=== PATIENT | male | born 1955 | race Caucasian/White ===

== ENCOUNTER 2018-08-05 22:28 | Observation (INO) | payer OTHER ==
[2018-08-05] MEDS ORDERED: IPRATROPIUM-ALBUTEROL 3 ML NEB INHALATION STA (23:07)
[2018-08-05] MEDS ORDERED: LEVOFLOXACIN 750MG-D5W PMX 750 MG in DEXTROSE/WATER 1 150ML.BAG IVPB STA (23:07)
[2018-08-05] MEDS ORDERED: SODIUM CHLORIDE 0.9% 500 ML 500 ML IV STA (23:07)
[2018-08-05] MEDS ORDERED: SODIUM CHLORIDE 0.9% 1,000 ML IV STA (23:07)
[2018-08-05] MEDS ORDERED: ACETAMINOPHEN TAB 500 MG TAB PO STA (23:08)
[2018-08-05] MEDS ORDERED: IBUPROFEN 800 MG TAB PO STA (23:08)
--- NOTE | 2018-08-05 23:14 | XR ---
EXAMINATION TYPE: XR chest 2V DATE OF EXAM: 08/05/2018 COMPARISON: NONE HISTORY: Chest pain TECHNIQUE: Frontal and lateral views of the chest are obtained. FINDINGS: Heart and mediastinum are normal. Lungs are clear. Diaphragm is normal. Bony thorax is int act. IMPRESSION: Normal chest. No change.
[2018-08-05 23:48] LABS: Basophils % (A) 1 %; Eosinophils # (A) 0.1 k/uL (0-0.7); Eosinophils % (A) 2 %; HCT 40.1 % (39.0-53.0); HGB 13.7 gm/dL (13.0-17.5); Lymphocytes # (A) 1.2 k/uL (1.0-4.8); Lymphocytes % (A) 17 %; MCHC 34.2 g/dL (31.0-37.0); MCV 84.8 fL (80.0-100.0); Mean Platelet Volume 7.4; Monocytes # (A) 0.4 k/uL (0-1.0); Monocytes % (A) 6 %; Neutrophils # (A) 5.2 k/uL (1.3-7.7); Neutrophils % (A) 74 %; Platelet Count 148 k/uL (150-450); RBC 4.73 m/uL (4.30-5.90); RDW 13.5 % (11.5-15.5); WBC 7.1 k/uL (3.8-10.6)
[2018-08-05 23:57] LABS: Partial Thromboplastin Time 26.8 sec (22.0-30.0); Prothrombin Time 9.5 sec (9.0-12.0)
[2018-08-06 00:01] LABS: ALT 18 U/L (21-72); AST 12 U/L (17-59); Albumin 3.8 g/dL (3.5-5.0); Alkaline Phosphatase 97 U/L (38-126); Anion Gap 7 mmol/L; Blood Urea Nitrogen 20 mg/dL (9-20); Calcium 9.1 mg/dL (8.4-10.2); Carbon Dioxide 24 mmol/L (22-30); Chloride 108 mmol/L (98-107); Glucose 86 mg/dL (74-99); Magnesium 2.3 mg/dL (1.6-2.3); Sodium 139 mmol/L (137-145); Total Bilirubin 0.3 mg/dL (0.2-1.3); Total Protein 6.1 g/dL (6.3-8.2)
[2018-08-06 00:09] LABS: Creatine Kinase 36 U/L (55-170)
[2018-08-06 00:22] LABS: Creatine Kinase MB 0.7 ng/mL (0.0-2.4); Troponin I <0.012 ng/mL (0.000-0.034)
[2018-08-06] MEDS ORDERED: NITROGLYCERIN SL TABS 0.4 MG TAB SUBLINGUAL PRN (00:27)
[2018-08-06] MEDS ORDERED: methylPREDNISolone SOD SUCCI 125 MG/2 ML VIAL IV STA (00:27)
[2018-08-06] MEDS ORDERED: ASPIRIN 81 MG PO STA (00:27)
--- NOTE | 2018-08-06 00:27 | ED ---
SOB HPI - General Chief Complaint: Upper Respiratory Infection Stated Complaint: poss pneumonia Time Seen by Provider: 08/05/18 22:54 Source: patient, RN notes reviewed, old records reviewed Mode of arrival: ambulatory Limitations: no limitations - History of Present Illness Initial Comments: This is a 61-year-old male to the ER for evaluation presented for evaluation today regarding shortness of breath is breath and chest pain. Patient does admit history of smoking. No other significant medical history woke up with Some substernal chest pain and pressure he states recently her upper respiratory infection including Raynaud's cough and congestion that she feels like similar distress episodic fevers or chills. No recent travel history no sick contacts. No recent hospitalizations. MD Complaint: shortness of breath, cough, chest pain, pain with inspiration -: days(s) (4) Severity scale (1-10): 3 Quality: dull, aching Consistency: constant Improves With: nothing Worsens With: exertion Known History Of: COPD Associated Symptoms: chest pain, pain with inspiration, fever, cough, sputum production Treatments Prior to Arrival: none - Related Data Home Medications Medication Instructions Recorded Confirmed Cyclobenzaprine [Flexeril] 10 mg PO DAILY PRN 08/05/18 08/05/18 Hydrocodone/Acetaminophen [[place] 1 tab PO Q4H PRN 08/05/18 08/05/18 10-325] Zolpidem Tartrate [Ambien] 10 mg PO HS PRN 08/05/18 08/05/18 traZODone HCL 200 mg PO HS 08/05/18 08/05/18 Allergies Allergy/AdvReac Type Severity Reaction Status Date / Time No Known Allergies Allergy Verified 08/05/18 23:01 Review of Systems ROS Statement: Those systems with pertinent positive or pertinent negative responses have been documented in the HPI. ROS Other: All systems not noted in ROS Statement are negative. Past Medical History Additional Past Medical History / Comment(s): kidney stones, back pain History of Any Multi-Drug Resistant Organisms: None Reported Past Surgical History: Tonsillectomy Past Psychological History: Depression Smoking Status: Current every day smoker Past Alcohol Use History: Rare Past Drug Use History: None Reported General Exam Limitations: no limitations General appearance: alert, in no apparent distress Head exam: Present: atraumatic, normocephalic, normal inspection Eye exam: Present: normal appearance, PERRL, EOMI. Absent: scleral icterus, conjunctival injection, periorbital swelling ENT exam: Present: normal exam, mucous membranes moist Neck exam: Present: normal inspection. Absent: tenderness, meningismus, lymphadenopathy Respiratory exam: Present: wheezes, decreased breath sounds, prolonged expiratory. Absent: respiratory distress, rales, rhonchi, stridor Cardiovascular Exam: Present: regular rate, normal rhythm, normal heart sounds. Absent: systolic murmur, diastolic murmur, rubs, gallop, clicks GI/Abdominal exam: Present: soft, normal bowel sounds. Absent: distended, tenderness, guarding, rebound, rigid Extremities exam: Present: normal inspection, full ROM, normal capillary refill. Absent: tenderness, pedal edema, joint swelling, calf tenderness Back exam: Present: normal inspection Neurological exam: Present: alert, oriented X3, CN II-XII intact Psychiatric exam: Present: normal affect, normal mood Skin exam: Present: warm, dry, intact, normal color. Absent: rash Course Vital Signs 08/05/18 08/05/18 08/05/18 22:30 23:40 23:59 Temperature 98.1 F Pulse Rate 109 H 81 88 Respiratory 20 16 Rate Blood Pressure 137/86 136/72 O2 Sat by Pulse 91 L 95 Oximetry - Reevaluation(s) Reevaluation #1: 08/06/18 00:25 Medical records thoroughly reviewed Reevaluation #2: 08/06/18 00:26 Patient is not feeling much better with breathing treatments, still with chest pain Medical Decision Making - Medical Decision Making 63 male the ER with history of smoking, chest pain, cough congestion shortness of breath increased sputum production, COPD exacerbation, patient will also be ruled out for cardiac evaluation. - Lab Data Result diagrams: 08/05/18 23:34 08/05/18 23:34 Lab Results 08/05/18 08/05/18 08/05/18 Range/Units 23:34 23:34 23:34 WBC 7.1 (3.8-10.6) k/uL RBC 4.73 (4.30-5.90) m/uL Hgb 13.7 (13.0-17.5) gm/dL Hct 40.1 (39.0-53.0) % MCV 84.8 (80.0-100.0) fL MCH 29.0 (25.0-35.0) pg MCHC 34.2 (31.0-37.0) g/dL RDW 13.5 (11.5-15.5) % Plt Count 148 L (150-450) k/uL Neutrophils % 74 % Lymphocytes % 17 % Monocytes % 6 % Eosinophils % 2 % Basophils % 1 % Neutrophils # 5.2 (1.3-7.7) k/uL Lymphocytes # 1.2 (1.0-4.8) k/uL Monocytes # 0.4 (0-1.0) k/uL Eosinophils # 0.1 (0-0.7) k/uL Basophils # 0.0 (0-0.2) k/uL PT (9.0-12.0) sec INR (<1.2) APTT (22.0-30.0) sec Sodium 139 (137-145) mmol/L Potassium 4.0 (3.5-5.1) mmol/L Chloride 108 H (98-107) mmol/L Carbon Dioxide 24 (22-30) mmol/L Anion Gap 7 mmol/L BUN 20 (9-20) mg/dL Creatinine 0.71 (0.66-1.25) mg/dL Est GFR (CKD-EPI)AfAm >90 (>60 ml/min/1.73 sqM) Est GFR (CKD-EPI)NonAf >90 (>60 ml/min/1.73 sqM) Glucose 86 (74-99) mg/dL Calcium 9.1 (8.4-10.2) mg/dL Magnesium 2.3 (1.6-2.3) mg/dL Total Bilirubin 0.3 (0.2-1.3) mg/dL AST 12 L (17-59) U/L ALT 18 L (21-72) U/L Alkaline Phosphatase 97 (38-126) U/L Total Creatine Kinase 36 L (55-170) U/L CK-MB (CK-2) 0.7 (0.0-2.4) ng/mL CK-MB (CK-2) Rel Index 1.9 Troponin I <0.012 (0.000-0.034) ng/mL NT-Pro-B Natriuret Pep pg/mL Total Protein 6.1 L (6.3-8.2) g/dL Albumin 3.8 (3.5-5.0) g/dL 08/05/18 08/05/18 Range/Units 23:34 23:34 WBC (3.8-10.6) k/uL RBC (4.30-5.90) m/uL Hgb (13.0-17.5) gm/dL Hct (39.0-53.0) % MCV (80.0-100.0) fL MCH (25.0-35.0) pg MCHC (31.0-37.0) g/dL RDW (11.5-15.5) % Plt Count (150-450) k/uL Neutrophils % % Lymphocytes % % Monocytes % % Eosinophils % % Basophils % % Neutrophils # (1.3-7.7) k/uL Lymphocytes # (1.0-4.8) k/uL Monocytes # (0-1.0) k/uL Eosinophils # (0-0.7) k/uL Basophils # (0-0.2) k/uL PT 9.5 (9.0-12.0) sec INR 1.0 (<1.2) APTT 26.8 (22.0-30.0) sec Sodium (137-145) mmol/L Potassium (3.5-5.1) mmol/L Chloride (98-107) mmol/L Carbon Dioxide (22-30) mmol/L Anion Gap mmol/L BUN (9-20) mg/dL Creatinine (0.66-1.25) mg/dL Est GFR (CKD-EPI)AfAm (>60 ml/min/1.73 sqM) Est GFR (CKD-EPI)NonAf (>60 ml/min/1.73 sqM) Glucose (74-99) mg/dL Calcium (8.4-10.2) mg/dL Magnesium (1.6-2.3) mg/dL Total Bilirubin (0.2-1.3) mg/dL AST (17-59) U/L ALT (21-72) U/L Alkaline Phosphatase (38-126) U/L Total Creatine Kinase (55-170) U/L CK-MB (CK-2) (0.0-2.4) ng/mL CK-MB (CK-2) Rel Index Troponin I (0.000-0.034) ng/mL NT-Pro-B Natriuret Pep 96 pg/mL Total Protein (6.3-8.2) g/dL Albumin (3.5-5.0) g/dL - EKG Data -: EKG Interpreted by Me (EKG shows normal sinus rhythm rate of 81, [place] 140, QRS 76, QTc 460) EKG shows normal: sinus rhythm Rate: normal Disposition Clinical Impression: Chest pain, Acute exacerbation of chronic obstructive pulmonary disease (COPD) Disposition: ADMITTED IP TO THIS HOSP Condition: Fair Is patient prescribed a controlled substance at d/c from ED?: No Referrals: [facility],Clinic [Primary Care Provider] - 1-2 days
[2018-08-06] MEDS ORDERED: SODIUM CHLORIDE 0.9% 1,000 ML IV SCH (00:30)
[2018-08-06 01:48] VITALS: BMI 24.3
[2018-08-06 06:03] LABS: Creatine Kinase 31 U/L (55-170)
[2018-08-06] MEDS: methylPREDNISolone SOD SUCCI 125 MG/2 ML VIAL IV SCH ×2 (06:06→13:06)
[2018-08-06 06:14] LABS: Creatine Kinase MB 0.6 ng/mL (0.0-2.4); Troponin I <0.012 ng/mL (0.000-0.034)
[2018-08-06 06:54] LABS: Glucose,Whole Blood 216 mg/dL (75-99)
[2018-08-06] MEDS: IPRATROPIUM-ALBUTEROL 3 ML NEB INHALATION SCH ×2 (07:39→11:26)
[2018-08-06 08:03] VITALS: RESP 18; TEMP 98.2
[2018-08-06] MEDS ORDERED: HYDROcodone/APAP 10-325MG 1 EACH TAB PO ONE (08:45)
[2018-08-06] MEDS ORDERED: NICOTINE 21MG/24HR PATCH TRANSDERM SCH (09:00)
[2018-08-06] MEDS ORDERED: AZITHROMYCIN 500 MG TAB PO SCH (09:00)
[2018-08-06 12:03] LABS: Creatine Kinase 32 U/L (55-170)
[2018-08-06 12:05] VITALS: BP 138/79; PULSE 75
[2018-08-06 12:17] LABS: Creatine Kinase MB 0.7 ng/mL (0.0-2.4); Troponin I <0.012 ng/mL (0.000-0.034)
[2018-08-06 12:17] LABS: Glucose,Whole Blood 144 mg/dL (75-99)
[2018-08-06] MEDS ORDERED: INSULIN ASPART 100 UNIT/ML 1 ML 10 ML VIAL SQ SCH (12:30)
--- NOTE | 2018-08-06 15:39 | P.DS ---
Providers Date of admission: 08/06/18 00:27 Attending physician: Ernst Chapman Primary care physician: [facility] Hospital Course: Please refer to my HPI Patient Condition at Discharge: Fair Plan - Discharge Summary New Discharge Prescriptions: New Albuterol Inhaler [Ventolin Hfa Inhaler] 1 - 2 puff INHALATION Q6HR PRN #1 inhaler PRN Reason: Shortness Of Breath Or Wheezing Budesonide-Formot 160-4.5 Mcg [Symbicort 160-4.5 Mcg Inhaler] 2 puff INHALATION BID #1 inhaler Doxycycline Monohydrate [Monodox] 100 mg PO BID 3 Days #6 cap predniSONE 10 mg PO DAILY #15 tab No Action Zolpidem Tartrate [Ambien] 10 mg PO HS PRN PRN Reason: Insomnia Hydrocodone/Acetaminophen [[place] 10-325] 1 tab PO Q4H PRN PRN Reason: Pain Cyclobenzaprine [Flexeril] 10 mg PO DAILY PRN PRN Reason: Muscle Spasm traZODone HCL 200 mg PO HS QUEtiapine [SEROquel] 50 mg PO HS Discharge Medication List Cyclobenzaprine [Flexeril] 10 mg PO DAILY PRN 08/05/18 [History] Hydrocodone/Acetaminophen [[place] 10-325] 1 tab PO Q4H PRN 08/05/18 [History] Zolpidem Tartrate [Ambien] 10 mg PO HS PRN 08/05/18 [History] traZODone HCL 200 mg PO HS 08/05/18 [History] Albuterol Inhaler [Ventolin Hfa Inhaler] 1 - 2 puff INHALATION Q6HR PRN #1 inhaler 08/06/18 [Rx] Budesonide-Formot 160-4.5 Mcg [Symbicort 160-4.5 Mcg Inhaler] 2 puff INHALATION BID #1 inhaler 08/06/18 [Rx] Doxycycline Monohydrate [Monodox] 100 mg PO BID 3 Days #6 cap 08/06/18 [Rx] QUEtiapine [SEROquel] 50 mg PO HS 08/06/18 [History] predniSONE 10 mg PO DAILY #15 tab 08/06/18 [Rx] Follow up Appointment(s)/Referral(s): [facility],Clinic [Primary Care Provider] - 3 Days Patient Instructions/Handouts: Dyspnea (ED) Discharge Disposition: HOME SELF-CARE
--- NOTE | 2018-08-06 15:39 | P.HPIM ---
History of Present Illness 7-year-old pleasant gentleman was admitted with cough congestion, patient is unable to bring up much patient is a smoker never diagnosed with COPD admitted for possible COPD exacerbation although patient is not wheezing on exam today patient is able to ablate without any problem with SATURATIONS. PATIENT WILL BE DISCHARGED ON A SHORT COURSE OF ORAL STEROIDS ALONG WITH ALBUTEROL PATIENT WILL BENEFIT FROM PULMONARY FUNCTION TESTING AN OUTPATIENT. CHEST X-RAY DID NOT SHOW ANY PNEUMONIC PROCESS PATIENT DENIED ANY CHEST PAIN TO ME Review of Systems REVIEW OF SYSTEMS: CONSTITUTIONAL: No fever, no malaise, no fatigue. HEENT: No recent visual problems or hearing problems. Denied any sore throat. CARDIOVASCULAR: No chest pain, orthopnea, PND, no palpitations, no syncope. PULMONARY: no hemoptysis. GASTROINTESTINAL: No diarrhea, no nausea, no vomiting, no abdominal pain. Normoactive bowel sounds. NEUROLOGICAL: No headaches, no weakness, no numbness. HEMATOLOGICAL: Denies any bleeding or petechiae. GENITOURINARY: Denies any burning micturition, frequency, or urgency. MUSCULOSKELETAL/RHEUMATOLOGICAL: Denies any joint pain, swelling, or any muscle pain. ENDOCRINE: Denies any polyuria or polydipsia. The rest of the 14-point review of systems is negative. Past Medical History Additional Past Medical History / Comment(s): kidney stones, back pain History of Any Multi-Drug Resistant Organisms: None Reported Past Surgical History: Tonsillectomy Past Anesthesia/Blood Transfusion Reactions: No Reported Reaction Past Psychological History: Depression Additional Psychological History / Comment(s): Patient says he lives alone. Drinks alcohol occasionally. Smokes a pack a day. Smoking Status: Current every day smoker Past Alcohol Use History: Rare Past Drug Use History: None Reported - Past Family History Father Family Medical History: No Reported History Medications and Allergies Home Medications Medication Instructions Recorded Confirmed Type Cyclobenzaprine [Flexeril] 10 mg PO DAILY PRN 08/05/18 08/05/18 History Hydrocodone/Acetaminophen [[place] 1 tab PO Q4H PRN 08/05/18 08/05/18 History 10-325] Zolpidem Tartrate [Ambien] 10 mg PO HS PRN 08/05/18 08/05/18 History traZODone HCL 200 mg PO HS 08/05/18 08/05/18 History Albuterol Inhaler [Ventolin Hfa 1 - 2 puff INHALATION Q6HR PRN #1 08/06/18 Rx Inhaler] inhaler Budesonide-Formot 160-4.5 Mcg 2 puff INHALATION BID #1 inhaler 08/06/18 Rx [Symbicort 160-4.5 Mcg Inhaler] Doxycycline Monohydrate [Monodox] 100 mg PO BID 3 Days #6 cap 08/06/18 Rx QUEtiapine [SEROquel] 50 mg PO HS 08/06/18 08/06/18 History predniSONE 10 mg PO DAILY #15 tab 08/06/18 Rx Allergies Allergy/AdvReac Type Severity Reaction Status Date / Time No Known Allergies Allergy Verified 08/05/18 23:01 Physical Exam Vitals: Vital Signs Temp Pulse Pulse Resp BP BP Pulse Ox 08/06/18 11:36 84 08/06/18 11:26 80 08/06/18 11:15 98.2 F 75 18 138/79 95 08/06/18 08:00 18 08/06/18 07:50 80 08/06/18 07:39 78 08/06/18 07:05 98.2 F 71 18 144/88 94 L 08/06/18 04:37 98.0 F 82 15 130/75 96 08/06/18 04:00 18 08/06/18 01:37 98.1 F 75 20 130/77 95 08/06/18 00:53 98.2 F 79 16 124/59 91 L 08/05/18 23:59 88 16 136/72 95 08/05/18 23:40 81 08/05/18 22:30 98.1 F 109 H 20 137/86 91 L Intake and Output 08/06/18 08/06/18 08/06/18 06:59 14:59 22:59 Intake Total 1082 Balance 1082 Intake: Oral 1082 Other: Voiding Method Toilet Toilet # Voids 2 2 # Bowel Movements 1 Weight 81.329 kg PHYSICAL EXAMINATION: GENERAL: The patient is alert and oriented x3, not in any acute distress. Well developed, well nourished. HEENT: Pupils are round and equally reacting to light. EOMI. No scleral icterus. No conjunctival pallor. Normocephalic, atraumatic. No pharyngeal erythema. No thyromegaly. CARDIOVASCULAR: S1 and S2 present. No murmurs, rubs, or gallops. PULMONARY: Chest is clear to auscultation, no wheezing or crackles. ABDOMEN: Soft, nontender, nondistended, normoactive bowel sounds. No palpable organomegaly. MUSCULOSKELETAL: No joint swelling or deformity. EXTREMITIES: No cyanosis, clubbing, or pedal edema. NEUROLOGICAL: Gross neurological examination did not reveal any focal deficits. SKIN: No rashes. Results CBC & Chem 7: 08/05/18 23:34 08/05/18 23:34 Labs: Abnormal Lab Results - Last 24 Hours (Table) 08/05/18 08/05/18 08/05/18 Range/Units 23:34 23:34 23:34 Plt Count 148 L (150-450) k/uL Chloride 108 H (98-107) mmol/L POC Glucose (mg/dL) (75-99) mg/dL AST 12 L (17-59) U/L ALT 18 L (21-72) U/L Total Creatine Kinase 36 L (55-170) U/L Total Protein 6.1 L (6.3-8.2) g/dL 08/06/18 08/06/18 08/06/18 Range/Units 05:26 06:52 11:08 Plt Count (150-450) k/uL Chloride (98-107) mmol/L POC Glucose (mg/dL) 216 H (75-99) mg/dL AST (17-59) U/L ALT (21-72) U/L Total Creatine Kinase 31 L 32 L (55-170) U/L Total Protein (6.3-8.2) g/dL 08/06/18 Range/Units 12:14 Plt Count (150-450) k/uL Chloride (98-107) mmol/L POC Glucose (mg/dL) 144 H (75-99) mg/dL AST (17-59) U/L ALT (21-72) U/L Total Creatine Kinase (55-170) U/L Total Protein (6.3-8.2) g/dL Thrombosis Risk Factor Assmnt - Choose All That Apply Any of the Below Risk Factors Present?: Yes Each Factor Represents 1 point: Age 41-60 years Thrombosis Risk Factor Assessment Total Risk Factor Score: 1 Thrombosis Risk Factor Assessment Level: Low Risk Assessment and Plan Plan: -Possibly of COPD exacerbation when I evaluated patient is not wheezing on exam patient will be discharged on chart course of steroids [place] and the albuterol inhalational patient will benefit from pulmonary function testing -URI doxycycline upon discharge -Nicotine abuse: Counseling was provided -Depression and other psychiatric issues: Patient will continue his home medications
[2018-08-07] MEDS ORDERED: ASPIRIN 325 MG TAB PO SCH (09:00)
== END 2018-08-06 14:34 | disposition home or self-care (01) ==
LOC: EC 22:28 → 3OBS 08-06 00:27
PROVIDERS: ADMIT Hospitalist; ATTEND Hospitalist
DX: R07.2 Precordial pain (principal); J06.9 Acute upper respiratory infection, unspecified; M54.9 Dorsalgia, unspecified; F32.9 Major depressive disorder, single episode, unspecified; Z79.899 Other long term (current) drug therapy; Z79.51 Long term (current) use of inhaled steroids; Z87.442 Personal history of urinary calculi; F17.210 Nicotine dependence, cigarettes, uncomplicated; R06.02 Shortness of breath; R07.9 Chest pain, unspecified
CPT/HCPCS: 99285; 96365 ×2; 96366 ×3; 96375 ×2; 96376; 36415; 94640 ×3; 93005; 83880; 80053; 82550 ×2; 82553 ×2; 83735; 84484 ×2; 85025; 85610; 85730; 87040; 83036; 71046; G0378; J2930; J1956

== ENCOUNTER → 2021-03-31 | Outpatient (CLI) | payer OTHER ==
--- NOTE | 2021-03-31 13:55 | CTL ---
EXAMINATION TYPE: CT Low Dose Lung DATE OF EXAM ORDERED: 03/31/2021 HISTORY: Long-term tobacco use. Lung cancer screening CT DLP: 120.[address] CTDI: 3.4 mGy Automated exposure control for dose reduction was used. SCREENING VISIT: Baseline COMPARISON: None TECHNIQUE: Low dose computed tomography scan was performed through the chest at 1 mm thick sections a nd reconstructed images in the coronal plane at [address] DIAGNOSTIC QUALITY: Limited, but interpretable Motion artifact degradation FINDINGS: LUNG NODULES: Present, detailed below: Incidental 12 mm calcified nodule or benign granuloma posterior left lung base axial image 238. No obvious concerning noncalcified greater than 5 mm nodules. LUNGS: COPD: Severity: Moderate Fibrosis: Severity: Focal moderate in the lingula. Focal mild in the left lung base. Lymph nodes: No greater than 1 cm Other findings: Mild dependent atelectatic change and interstitial edema posteriorly and along fissur es. RIGHT PLEURAL SPACE: Effusion: None Calcification: None Thickening: None Pneumothorax: None LEFT PLEURAL SPACE: Slightly elevated left hemidiaphragm. Effusion: None Calcification: None Thickening: None Pneumothorax: None HEART: Heart Size: Normal Coronary calcification: Mild to moderate Pericardial effusion: None. OTHER FINDINGS: Upper abdomen: None. Bony thorax: None. Supraclavicular region: Normal. Other: Enlarged pulmonary arteries consistent with underlying pulmonary hypertension. 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 IMPRESSION: No concerning nodules. CT LUNG RAD AND CT CHEST RECOMMENDATION: Lung-Rad 2 Benign Appearance or Behavior: Continue annual sc reening with LDCT in 12 months. 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
== END | disposition home or self-care (01) ==
LOC: RADCTMAIN 11:40
DX: Z12.2 Encounter for screening for malignant neoplasm of respiratory organs (principal); Z87.891 Personal history of nicotine dependence
CPT/HCPCS: 71271

== ENCOUNTER → 2022-05-24 | Outpatient (CLI) | payer OTHER ==
--- NOTE | 2022-05-24 21:21 | CTL ---
EXAMINATION TYPE: CT Low Dose Lung DATE OF EXAM ORDERED: 05/24/2022 HISTORY: . Lung cancer screening CT DLP: 99.[address] CTDI: 2.9 mGy Automated exposure control for dose reduction was used. SCREENING VISIT: Subsequent COMPARISON: 03/31/2021 TECHNIQUE: Low dose computed tomography scan was performed through the chest at 1 mm thick sections a nd reconstructed images in the coronal plane at [address] DIAGNOSTIC QUALITY: Satisfactory FINDINGS: LUNG NODULES: None. 1. There is a 1.3 cm nodule with central popcorn-like calcification likely related to a granuloma. Th is is stable from comparison. Series 4 image 242. LUNGS: COPD: Severity: Moderate Fibrosis: Severity: Mild Lymph nodes: None Other findings: Some streak atelectasis appears to be within the lingula. RIGHT PLEURAL SPACE: Effusion: None Calcification: None Thickening: None Pneumothorax: None LEFT PLEURAL SPACE: Effusion: None Calcification: None Thickening: None Pneumothorax: None HEART: Heart Size: Normal Coronary calcification: Mild Pericardial effusion: None OTHER FINDINGS: Upper abdomen: Normal Bony thorax: Normal Supraclavicular region: Normal Other: Ascending thoracic aorta at the level the main pulmonary artery measures 3.9 cm. The main pul monary artery at the bifurcation measures 3.0 cm. IMPRESSION: 1. Benign findings FOLLOW UP CT CHEST RECOMMENDATION: Follow-up low-dose CT chest one year CT LUNG RAD: Lung-Rad 2 Benign Appearance or Behavior
--- NOTE | 2022-05-25 07:59 | US ---
EXAMINATION TYPE: US duplex aorta DATE OF EXAM: 05/24/2022 COMPARISON: NONE CLINICAL HISTORY: Z87.891, SMOKER. AAA smoker TECHNIQUE: Multiple sonographic images of the abdominal aorta are obtained. FINDINGS: EXAM MEASUREMENTS: Abdominal Aorta: Proximal: 2.4 x 2.2 cm Mid: 2.4 x 2.3 cm Distal: 2.6 x 2.0 cm Bifurcation: 1.7 cm x 1.9 cm SERVICE COORDINATOR [facility] FACILITY NOTES: IMPRESSION: 1. No suspicious changes for abdominal aortic aneurysm. 2. Minimal fusiform prominence of the distal abdominal aorta is noted maximum AP diameter 2.6 cm vers us 2.4 cm.
== END | disposition home or self-care (01) ==
LOC: RADCTMAIN 15:14
DX: Z87.891 Personal history of nicotine dependence (principal); Z12.2 Encounter for screening for malignant neoplasm of respiratory organs
CPT/HCPCS: 71271; 93979

== ENCOUNTER → 2023-08-08 | Outpatient (CLI) | payer OTHER ==
--- NOTE | 2023-08-08 11:19 | CTL ---
EXAMINATION TYPE: CT Low Dose Lung DATE OF EXAM ORDERED: 08/08/2023 COMPARISON: 05/24/2023 HISTORY: . Low Dose CT Lung Screening CT DLP: [address] CTDI: 2.8 mGy IV CONTRAST USED: None. SCREENING VISIT: Third visit COMPARISON: None. TECHNIQUE: Low dose computed tomography scan was performed through the chest at 1 millimeter thick se ctions and reconstructed images in the coronal plane at [address] DIAGNOSTIC QUALITY: Satisfactory FINDINGS: LUNG NODULES: Stable calcified granuloma left lower lobe. No new or concerning nodules seen. Scattere d linear atelectasis or parenchymal scarring seen. [id number] centrilobular emphysema seen LUNGS: COPD: Severity: Mild to moderate Fibrosis: Severity:None Lymph nodes: None Other findings: None RIGHT PLEURAL SPACE: Effusion: None Calcification: None Thickening: None Pneumothorax: None LEFT PLEURAL SPACE: Effusion: None Calcification: None Thickening: None Pneumothorax: None HEART: Heart Size: Mildly enlarged Coronary calcification: Mild Pericardial effusion: None OTHER FINDINGS: Upper abdomen: No significant abnormality Bony thorax: Degenerative changes Supraclavicular region: No significant abnormalityOther: No significant abnormalityI IMPRESSION: Benign FOLLOW UP CT CHEST RECOMMENDATION: Follow-up screening in one year CT LUNG RAD: LUNG RAD CATEGORY 2 benign appearance and/or behavior
== END | disposition home or self-care (01) ==
LOC: RADCTMAIN 10:32
DX: Z12.2 Encounter for screening for malignant neoplasm of respiratory organs (principal); F17.210 Nicotine dependence, cigarettes, uncomplicated
CPT/HCPCS: 71271

== ENCOUNTER → 2024-08-20 | Outpatient (CLI) | payer OTHER ==
--- NOTE | 2024-08-20 12:30 | CTL ---
EXAMINATION TYPE: CT Low Dose Lung DATE OF EXAM ORDERED: 08/20/2024 History: Lung cancer screening. Smoking history. CT DLP: [address] CTDI: 2.14 mGy Automated exposure control for dose reduction was used. Impression: 08/08/2023. TECHNIQUE: Low dose computed tomography scan was performed through the chest at 1 mm thick sections a nd reconstructed images in multiple planes at 1 mm and [address] DIAGNOSTIC QUALITY: Satisfactory FINDINGS: There are marked emphysematous changes. There is no airspace consolidation. There is mild interstitial density in the lingula consistent with chronic interstitial fibrosis or scarring. There is a stable calcified granuloma in the right lung base posteriorly. No new or suspicious lung m ass or nodule is seen. The great vessels of the chest are normal with no mediastinal, hilar or axillary adenopathy. Limited scanning through the upper abdomen reveals no gross abnormality. No focal osseous lesions are seen. IMPRESSION: 1. Lung RADS category 2 benign findings. Continue routine screening yearly intervals. 2. No acute cardiopulmonary disease. 3. Marked emphysematous change. 4. No significant interval change compared to previous [facility], , 08/20/2024 12:28 PM
== END | disposition home or self-care (01) ==
LOC: RADCTMAIN 11:16
PROVIDERS: ATTEND Family Medicine
DX: Z12.2 Encounter for screening for malignant neoplasm of respiratory organs (principal); J43.9 Emphysema, unspecified; F17.210 Nicotine dependence, cigarettes, uncomplicated
CPT/HCPCS: 71271